=== PATIENT | male | born 1995 | race Two or more races ===

== ENCOUNTER 2024-09-06 23:54 | Emergency (ER) | payer OTHER ==
[~2024-09-06] VITALS: Ht 188 cm; Wt 73.4 kg
[2024-09-07 00:21] VITALS: O2SAT 98
[2024-09-07] MEDS ORDERED: CYCL10TA21 MT (03:25)
[2024-09-07] MEDS ORDERED: NAPR-1176 MT (03:25)
[2024-09-07] MEDS: IBUPROFEN 800MG TABLET PO ONE (03:33)
[2024-09-07 03:37] VITALS: BP 115/72; PULSE 86; RESP 18; TEMP 37.1; O2SAT 98
== END 2024-09-07 04:02 | disposition home or self-care (01) ==
LOC: ER 23:54
DX: S40.011A Contusion of right shoulder, initial encounter (principal); Z79.899 Other long term (current) drug therapy; X58.XXXA Exposure to other specified factors, initial encounter; Y93.89 Activity, other specified; Y92.89 Other specified places as the place of occurrence of the external cause; Y99.8 Other external cause status
CPT/HCPCS: 73030; 99283